=== PATIENT | female | born 1950 | race Caucasian/White ===

== ENCOUNTER 2016-10-09 19:33 | Emergency (ER) | payer MEDICARE, BC ==
[2016-10-09] MEDS ORDERED: Sodium Chloride 0.9% 10 ML Syringe FLUSH PRN (19:48)
[2016-10-09] MEDS ORDERED: Metoclopramide 10 MG/2 ML SDV IVPUSH ONE (19:48)
[2016-10-09] MEDS ORDERED: Ondansetron 4 MG/2 ML SDV IVPUSH ONE (19:48)
--- NOTE | 2016-10-09 19:54 | EDM.PDOC ---
ED HPI GI/ABDOMINAL - General Chief Complaint: Abdominal Pain Stated Complaint: Lower abdominal pain; fever Time Seen by Provider: 10/09/16 19:39 Source of Information: Reports: Patient, RN, RN notes reviewed History Limitations: Reports: No limitations - History of Present Illness INITIAL COMMENTS - FREE TEXT/NARRATIVE: Patient presents to the ED at [facility] with a 6 day history of lower abdominal/pelvic pain. Patient states her symptoms started last Monday. She felt very constipated, so she took 2 stool softeners on Monday and Monday, without any relief. Patient then took MiraLax Monday and yesterday, again without any relief of her symptoms. She states she has been having a very difficult time having BM's, but is passing a lot of gas. Patient states the stool she passes is hard and very small amounts. Started having fevers today ranging from 100-102. She has felt not well and has also been very nauseated. Symptom Onset Date: 10/03/16 Timing/Duration: Reports: Getting worse, Gradual onset Location: other (bilateral lower abdomen/pelvis) Quality: Reports: cramping, fullness Severity: moderate Improves with: Reports: other (none) Context: Denies: sick contact, bad/questionable food, out of country travel, recent surgery, recent trauma Associated Symptoms (-Female): Reports: constipation, fever/chills, loss of appetite, nausea/vomiting. 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: Other (see below) (See HPI) - Related Data Allergies/ADRs: Allergies Allergy/AdvReac Type Severity Reaction Status Date / Time doxycycline Allergy Itching Verified 10/09/16 19:53 Home Meds: Home Meds Escitalopram [Lexapro] 10 mg PO DAILY 10/09/16 [History] LORazepam 0.5 mg PO DAILY PRN 10/09/16 [History] Past Medical History Psychiatric History: Reports: Anxiety - Past Surgical History GI Surgical History: Reports: Appendectomy, Cholecystectomy Female Surgical History: Reports: Hysterectomy, Tubal ligation Social & Family History - Family History Family Medical History: Noncontributory - Tobacco Use Smoking Status *Q: Never Smoker - Tobacco Core Measures Tobacco Use/Smoking Within Last 30 Days: No Smokeless Tobacco Use in Last 30 Days: No - Caffeine Use Caffeine Use: Reports: Coffee - Alcohol Use Alcohol Use History: No Alcohol Use in Last Twelve Months: No - Recreational Drug Use Recreational Drug Use: No Drug Use in Last 12 Months: No - Living Situation & Occupation Living situation: Reports: Occupation: employed ED ROS GENERAL - Review of Systems Review Of Systems: See Below Constitutional: Reports: fever, decreased appetite. Denies: chills, weakness Respiratory: Denies: Shortness of Breath, Cough Cardiovascular: Denies: Chest pain, Palpitations GI/Abdominal: Reports: Abdominal pain, Constipation, Decreased appetite, Nausea. Denies: Bloody stool, Diarrhea, Vomiting : Reports: no symptoms Skin: Reports: no symptoms Neurological: Reports: No Symptoms. Denies: Dizziness, Headache ED EXAM, GI/ABD - Physical Exam Exam: See Below Exam Limited By: No limitations General Appearance: alert, no apparent distress Respiratory/Chest: no respiratory distress, lungs clear, normal breath sounds Cardiovascular: regular rate, rhythm GI/Abdominal: soft, hypoactive bowel sounds (RUQ/LUQ), hyperactive bowel sounds (lower abdomen), tenderness, guarding, rigidity Neurological: alert, oriented Skin Exam: Warm, Dry, Intact, Normal color, No rash Course - Vital Signs Last Recorded V/S: Last Vital Signs Temp 38.6 C H 10/09/16 20:21 Pulse 98 10/09/16 19:35 Resp 20 10/09/16 19:35 BP 165/77 H 10/09/16 19:35 Pulse Ox 97 10/09/16 19:35 - Orders/Labs/Meds Orders: Active Orders 24 hr Category Date Time Status Enema [RC] ONETIME Care 10/09/16 20:27 Inactive Abdomen 2V AP Flat Upright [CR] Stat Exams 10/09/16 19:39 Ordered Sodium Chloride 0.9% [Normal Saline] 1,000 ml Med 10/09/16 20:00 Active IV ASDIRECTED Sodium Chloride 0.9% [Saline Flush] Med 10/09/16 19:48 Active 10 ml FLUSH ASDIRECTED PRN Peripheral IV Insertion Adult [OM.PC] Routine Oth 10/09/16 19:48 Ordered Medication Orders Sodium Chloride (Normal Saline) 1,000 mls @ 999 mls/hr IV ASDIRECTED KARINA Last Admin: 10/09/16 20:16 Dose: 999 mls/hr Sodium Chloride (Saline Flush) 10 ml FLUSH ASDIRECTED PRN PRN Reason: Keep Vein Open Labs: Laboratory Tests 10/09/16 10/09/16 10/09/16 Range/Units 19:39 20:12 20:12 WBC 9.4 (4.0-10.0) x10^3/uL RBC 4.39 (4.00-5.50) x10^6/uL Hgb 13.0 (12.0-16.0) g/dL Hct 39.2 (33.0-47.0) % MCV 89.3 (78.0-93.0) fL MCH 29.6 (26.0-32.0) pg MCHC 33.2 (32.0-36.0) g/dL RDW Coeff of Verena 12.2 (10.0-15.0) % Plt Count 276 (130-400) x10^3/uL Neut % (Auto) 72.1 (50.0-80.0) % Lymph % (Auto) 16.3 L (25.0-50.0) % Towns % (Auto) 9.0 (2.0-11.0) % Eos % (Auto) 2.3 (0.0-4.0) % Baso % (Auto) 0.3 (0.2-1.2) % Sodium 139 (136-145) mmol/L Potassium 4.0 (3.5-5.1) mmol/L Chloride 101 (98-107) mmol/L Carbon Dioxide 29 (21-32) mmol/L BUN 14 (7-18) mg/dL Creatinine 0.9 (0.55-1.02) mg/dL Est Cr Clr Drug Dosing 55.33 mL/min Estimated GFR (MDRD) > 60 Glucose 117 H (74-106) mg/dL Lactic Acid (0.4-2.0) mmol/L Calcium 8.8 (8.5-10.1) mg/dL C-Reactive Protein (<=0.9) mg/dL Urine Color Yellow (YELLOW) Urine Appearance Clear (CLEAR) Urine pH 7.0 (5.0-8.0) Ur Specific [place] 1.015 Urine Protein Negative (NEGATIVE) mg/dL Urine Glucose (UA) Negative (NEGATIVE) mg/dL Urine Ketones Negative (NEGATIVE) mg/dL Urine Occult Blood Trace-intact H (NEGATIVE) Urine Nitrite Negative (NEGATIVE) Urine Bilirubin Negative (NEGATIVE) Urine Urobilinogen 0.2 (0.2) EU/dL Ur Leukocyte Esterase Trace H (NEGATIVE) Urine RBC 0-5 (NOT SEEN) /HPF Urine WBC 0-5 (NOT SEEN) /HPF Ur Squamous Epith Cells Rare (NEGATIVE) /HPF Urine Bacteria Rare (NEGATIVE) /HPF Urine Mucus Few H (NEGATIVE) /LPF 10/09/16 10/09/16 Range/Units 20:20 20:20 WBC (4.0-10.0) x10^3/uL RBC (4.00-5.50) x10^6/uL Hgb (12.0-16.0) g/dL Hct (33.0-47.0) % MCV (78.0-93.0) fL MCH (26.0-32.0) pg MCHC (32.0-36.0) g/dL RDW Coeff of Verena (10.0-15.0) % Plt Count (130-400) x10^3/uL Neut % (Auto) (50.0-80.0) % Lymph % (Auto) (25.0-50.0) % Towns % (Auto) (2.0-11.0) % Eos % (Auto) (0.0-4.0) % Baso % (Auto) (0.2-1.2) % Sodium (136-145) mmol/L Potassium (3.5-5.1) mmol/L Chloride (98-107) mmol/L Carbon Dioxide (21-32) mmol/L BUN (7-18) mg/dL Creatinine (0.55-1.02) mg/dL Est Cr Clr Drug Dosing mL/min Estimated GFR (MDRD) Glucose (74-106) mg/dL Lactic Acid 1.4 (0.4-2.0) mmol/L Calcium (8.5-10.1) mg/dL C-Reactive Protein 16.0 H (<=0.9) mg/dL Urine Color (YELLOW) Urine Appearance (CLEAR) Urine pH (5.0-8.0) Ur Specific [place] Urine Protein (NEGATIVE) mg/dL Urine Glucose (UA) (NEGATIVE) mg/dL Urine Ketones (NEGATIVE) mg/dL Urine Occult Blood (NEGATIVE) Urine Nitrite (NEGATIVE) Urine Bilirubin (NEGATIVE) Urine Urobilinogen (0.2) EU/dL Ur Leukocyte Esterase (NEGATIVE) Urine RBC (NOT SEEN) /HPF Urine WBC (NOT SEEN) /HPF Ur Squamous Epith Cells (NEGATIVE) /HPF Urine Bacteria (NEGATIVE) /HPF Urine Mucus (NEGATIVE) /LPF Meds: Medications Generic Name Dose Route Start Last Admin Trade Name Freq PRN Reason Stop Dose Admin Sodium Chloride 1,000 mls @ 999 mls/hr 10/09/16 20:00 10/09/16 20:16 Normal Saline IV 999 mls/hr ASDIRECTED KARINA Administration Sodium Chloride 10 ml 10/09/16 19:48 Saline Flush FLUSH ASDIRECTED PRN Keep Vein Open Discontinued Medications Generic Name Dose Route Start Last Admin Trade Name Freq PRN Reason Stop Dose Admin Acetaminophen 1,000 mg 10/09/16 20:05 10/09/16 20:21 Tylenol Extra Strength PO 10/09/16 20:06 1,000 mg ONETIME ONE Administration Metoclopramide HCl 10 mg 10/09/16 19:48 10/09/16 20:18 Reglan IVPUSH 10/09/16 19:49 10 mg ONETIME ONE Administration Ondansetron HCl 4 mg 10/09/16 19:48 10/09/16 20:17 Zofran IVPUSH 10/09/16 19:49 4 mg ONETIME ONE Administration Sodium Biphosphate/Sodium Phosphate 133 ml 10/09/16 20:55 Fleet Enema RECTAL 10/09/16 20:56 ONETIME ONE - Radiology Interpretation Free Text/Narrative:: See scanned report Departure - Departure Time of Disposition: 20:54 Disposition: Home, Self-Care 01 Condition: good Clinical Impression: Constipation Qualifiers: Constipation type: unspecified constipation type Qualified Code(s): K59.00 - Constipation, unspecified Fever Qualifiers: Fever type: unspecified Qualified Code(s): R50.9 - Fever, unspecified Instructions: Fever, Adult, Constipation, Adult Referrals: Patricia Reina DO [Physician] - Forms: ED Department Discharge Additional Instructions: 1. Stay well hydrated and rest 2. May continue with MiraLax and stool softeners 3. Start antibiotic on 10/10/2016; take for the full 10 days 4. Increase roughage in your diet 5. See your Primary as symptoms warrant - Problem List Review Problem List Initiated/Reviewed/Updated: Yes - My Orders Last 24 Hours: My Active Orders 10/09/16 19:39 Abdomen 2V AP Flat Upright [CR] Stat 10/09/16 19:48 Sodium Chloride 0.9% [Saline Flush] 10 ml FLUSH ASDIRECTED PRN Peripheral IV Insertion Adult [OM.PC] Routine 10/09/16 20:00 Sodium Chloride 0.9% [Normal Saline] 1,000 ml IV ASDIRECTED 10/09/16 20:27 Enema [RC] ONETIME - Assessment/Plan Last 24 Hours: My Active Orders 10/09/16 19:39 Abdomen 2V AP Flat Upright [CR] Stat 10/09/16 19:48 Sodium Chloride 0.9% [Saline Flush] 10 ml FLUSH ASDIRECTED PRN Peripheral IV Insertion Adult [OM.PC] Routine 10/09/16 20:00 Sodium Chloride 0.9% [Normal Saline] 1,000 ml IV ASDIRECTED 10/09/16 20:27 Enema [RC] ONETIME
[2016-10-09] MEDS ORDERED: Sodium Chloride 0.9% 1,000 ML IV SCH (20:00)
[2016-10-09] MEDS ORDERED: Acetaminophen 500 MG Tab PO ONE (20:05)
[2016-10-09 20:10] VITALS: BP 165/77
[2016-10-09 20:36] LABS: CHLORIDE,CL 101 mmol/L (98-107); SODIUM,NA 139 mmol/L (136-145)
[2016-10-09] MEDS ORDERED: Sodium Phosphate,Monobasic/Sodium Phosphate,Dibasic Enema 133 ML Bottle RECTAL ONE (20:55)
[2016-10-09] MEDS ORDERED: Magnesium Citrate Solution 296 ML Bottle PO ONE (21:04)
== END 2016-10-09 21:41 | disposition home or self-care (01) ==
LOC: VM.ED 19:33
DX: K59.00 Constipation, unspecified (principal); R50.9 Fever, unspecified; F41.9 Anxiety disorder, unspecified; Z79.899 Other long term (current) drug therapy; Z88.1 Allergy status to other antibiotic agents
CPT/HCPCS: 36415; 74020; 80048; 81001; 83605; 85025; 86140; 96361; 96374; 96375; 99284; A9270; J2405; J2765; J7030

== ENCOUNTER 2019-02-04 07:04 | Day surgery (SDC) | payer MEDICARE, BC ==
[~2019-02-04 07:04] MED LIST: Lactated Ringers 1,000 ML IV SCH
[2019-02-04] MEDS ORDERED: fentaNYL 100 MCG/2 ML SDV ONE (07:57)
[2019-02-04] MEDS ORDERED: Propofol 200 MG/20 ML SDV ONE (07:57)
[2019-02-04] MEDS ORDERED: Ondansetron 4 MG/2 ML SDV ONE (07:59)
--- NOTE | 2019-02-04 09:31 | OR ---
PREOPERATIVE DIAGNOSIS: Screening colonoscopy. POSTOPERATIVE DIAGNOSIS: Moderate sigmoid diverticulosis, otherwise normal exam. PROCEDURE PROPOSED/PROCEDURE DONE: Total flexible colonoscopy. INDICATION: This is a 68-year-old female, who comes in for a 10-year followup screening colonoscopy. She has had 1 previous exam that was unremarkable. She denies any family history of polyps or colon cancer. TECHNIQUE: The patient was brought to the endoscopy suite, placed in left lateral decubitus position. She was sedated per CLAIM EXAMINER with propofol. The flexible video colonoscope was then passed transanally and under visualization advanced to the cecum. The examination was difficult getting through the sigmoid region because of extensive diverticulosis and tortuosity, but once past the sigmoid colon, the examination went very smoothly. The ascending, transverse, and descending colon was essentially unremarkable. The sigmoid colon again revealed tortuosity and diverticulosis without polyps, and the rectum was normal. The scope was then withdrawn. The patient tolerated the procedure well. FINAL IMPRESSION: Sigmoid diverticulosis, otherwise normal exam. PLAN: At this point, I feel that she should have 1 more examination in 10 years, which likely would be her last one. SCM: 02/04/2019 08:49:46 MODL: 02/04/2019 09:08:07 /[id number]
[2019-02-04 09:32] VITALS: BP 131/66
== END 2019-02-04 10:55 | disposition home or self-care (01) ==
LOC: VM.SDS 07:04
PROVIDERS: ATTEND Surgery
DX: Z12.11 Encounter for screening for malignant neoplasm of colon (principal); K57.30 Diverticulosis of large intestine without perforation or abscess without bleeding; K63.89 Other specified diseases of intestine; K21.9 Gastro-esophageal reflux disease without esophagitis; K44.9 Diaphragmatic hernia without obstruction or gangrene; E78.5 Hyperlipidemia, unspecified; F41.9 Anxiety disorder, unspecified; M85.80 Other specified disorders of bone density and structure, unspecified site; Z88.1 Allergy status to other antibiotic agents; Z79.82 Long term (current) use of aspirin; Z79.899 Other long term (current) drug therapy
CPT/HCPCS: 00812; G0121; J2405; J2704; J3010; J7120